=== PATIENT | female | born 1950 | race Caucasian/White ===

== ENCOUNTER → 2019-08-12 | Outpatient (CLI) | payer OTHER ==
[~2019-08-12] MED LIST: EVISTA; NORCO 5-325 TA1 EACH PO; SYNTHROID; TAGAMETTAB
== END ==
LOC: M.LAB 10:04
PROVIDERS: ATTEND Internal Medicine Gastroenterology
DX: Z11.59 Encounter for screening for other viral diseases (principal); K21.9 Gastro-esophageal reflux disease without esophagitis; Z80.0 Family history of malignant neoplasm of digestive organs; R22.1 Localized swelling, mass and lump, neck; R13.10 Dysphagia, unspecified